=== PATIENT | female | born 1955 | race Caucasian/White ===

== ENCOUNTER 2020-03-19 13:11 | Inpatient (IN) | payer OTHER ==
[~2020-03-19] VITALS: Ht 152.4 cm; Wt 98.9 kg
--- NOTE | 2020-03-19 13:11 | NUR ---
PT [id number] URGENT CARE FOR CHEST PAIN THAT STARTED AT AROUND 0930. PT IS AAOX4, NOT IN RESPIRATORY DISTRESS, HOOKED TO BELLMAN DRIVER, KEPT RESTED AND COMFORTABLE. WILL CONTINUE TO MONITOR.
--- NOTE | 2020-03-19 13:36 | NUR ---
SEEN AND EXAMINED BY .
--- NOTE | 2020-03-19 13:40 | NUR ---
ER PHLEB AT BEDSIDE FOR BLOOD DRAW.
--- NOTE | 2020-03-19 13:44 | NUR ---
ENVIRONMENTAL FIELD PROFESSIONAL AT BEDSIDE FOR XRAY.
[2020-03-19 13:52] LABS: BASOPHILS % (AUTO) 0.5 % (0.0-2.0); HEMATOCRIT 36 % (33-45); HEMOGLOBIN 12.1 g/dL (11.5-14.8); LYMPHOCYTES # (AUTO) 1.8 /CMM (0.8-4.8); LYMPHOCYTES % (AUTO) 19.1 % (20.0-44.0); MEAN CORPUSCULAR HGB CONC 34 g/dl (31.0-36.0); MEAN CORPUSCULAR VOLUME 89 fL (82-100); MONOCYTES # (AUTO) 0.9 /CMM (0.1-1.30); MONOCYTES % (AUTO) 8.9 % (2.0-12.0); NEUTROPHILS # (AUTO) 6.7 /CMM (1.8-8.9); NEUTROPHILS % (AUTO) 70.5 % (43.0-81.0); PLATELET COUNT (AUTO) 242 /CMM (150-450); RED BLOOD CELL COUNT(AUTO) 4.03 MIL/uL (4.0-5.2); WHITE BLOOD COUNT (AUTO) 9.5 K/uL (4.3-11.0)
[2020-03-19 14:26] LABS: CALCIUM, SERUM 8.9 mg/dL (8.5-10.1); CARBON DIOXIDE 34 mmol/L (21-32); CHLORIDE 99 mmol/L (98-107); CREATININE 0.6 mg/dL (0.6-1.3); GLUCOSE 100 mg/dL (74-106); SODIUM SERUM 138 mmol/L (136-145); UREA NITROGEN, BLOOD 11 mg/dL (7-18)
[2020-03-19 14:32] LABS: ALANINE AMINOTRANSFERASE 23 U/L (12-78); ALBUMIN 3.3 g/dL (3.4-5.0); ALKALINE PHOSPHATASE 118 U/L (46-116); ASPARTATE AMINOTRANSFERASE 18 U/L (15-37); BILIRUBIN,DIRECT 0.4 mg/dL (0.0-0.2); BILIRUBIN,TOTAL 2.1 mg/dL (0.2-1.0); TOTAL PROTEIN, SERUM 7.3 g/dL (6.4-8.2)
[2020-03-19] MEDS ORDERED: SIMV-46 PO (14:44)
[2020-03-19] MEDS ORDERED: HYDR12.55 PO (14:44)
[2020-03-19] MEDS ORDERED: ONDANSETRON HCL/PF 4 MG/2 ML VIAL IVP PRN (17:30)
[2020-03-19] MEDS ORDERED: Z GUARD REMEDY 2 OZ OINT TP PRN (17:30)
[2020-03-19] MEDS ORDERED: MORPHINE SULFATE INJ 2 MG/ML DISP.SYRIN IV PRN (17:30)
[2020-03-19] MEDS ORDERED: MAGNESIUM HYDROXIDE 30 ML UDC PO PRN (17:30)
[2020-03-19] MEDS ORDERED: MAG HYDROX/AL HYDROX/SIMETH 30 ML UDC PO PRN (17:30)
[2020-03-19] MEDS ORDERED: TEMAZEPAM 15 MG CAPSULE PO PRN (17:30)
[2020-03-19] MEDS ORDERED: ACETAMINOPHEN 325 MG TABLET PO PRN (17:30)
[2020-03-19] MEDS ORDERED: HYDROCODONE/APAP 5/325MG TABLET PO PRN (17:30)
[2020-03-19] MEDS ORDERED: NITROGLYCERIN 0.4 MG/TAB BOTTLE SL PRN (17:30)
--- NOTE | 2020-03-19 17:44 | NUR ---
CHECKING ON COVID RESULT SINCE 1529 GIVE 15-30 MINS LAUREANO
[2020-03-19] MEDS ORDERED: HOME MED MISCELLANEOUS XX SCH (18:00)
--- NOTE | 2020-03-19 18:10 | NUR ---
LAB CALLED PT COVID RESULT (-) NEGATIVE.
[2020-03-19] MEDS ORDERED: MAG HYDROX/AL HYDROX/SIMETH 30 ML UDC PO ONE (19:30)
--- NOTE | 2020-03-19 21:41 | NUR ---
report given mark robbins for everardo
[2020-03-19] MEDS ORDERED: SIMVASTATIN 20 MG TABLET PO SCH (22:00)
[2020-03-19 22:10] VITALS: BP 137/75
--- NOTE | 2020-03-19 22:10 | NUR ---
FOIL CUTTER NOTES PATIENT ARRIVED ON FLOOR AT 2214. PT STEADY GAIT AND AMBULATED TO BED. PT IS ALERT AND ORIENTED X 4. BREATHING EVEN AND UNLABORED ON ROOM AIR. SHOWS NO SIGNS OF ACUTE RESPIRATORY DISTRESS, NO ACUTE PAIN. IV ON LAC 20G ITS CLEAN DRY AND INTACT. SHOWS NO SIGNS OF INFILTRATION, NO REDNESS. BELONGINGS CHECKLIST COMPLETED, SKIN IS INTACT. ORIENTED TO ROOM AND STAFF. SAFETY PRECAUTIONS IN PLACE. BED IN LOWEST POSITION, LOCKED, AND CALL LIGHT KEPT WITHIN REACH. WILL CONTINUE TO MONITOR.
--- NOTE | 2020-03-19 22:15 | NUR ---
DAY CAMP UNIT LEADER NOTES PATIENT HAS NO COMPLAINTS OF CHEST PAIN. SAID TO HAVE BEEN RELIEVED BY NITRO AND ASA. WILL CONTINUE TO MONITOR.
[2020-03-19 22:27] VITALS: BP 137/75
--- NOTE | 2020-03-20 06:41 | NUR ---
DECISION SUPPORT MANAGER NOTES PT IS BED, ASLEEP, ALERT AND ORIENTED X 4. BREATHING EVEN AND UNLABORED ON ROOM AIR. SHOWS NO SIGNS OF ACUTE RESPIRATORY DISTRESS, NO ACUTE PAIN. IV ON LAC 20G ITS CLEAN DRY AND INTACT. SHOWS NO SIGNS OF INFILTRATION, NO REDNESS. ALL DUE MEDICATIONS GIVEN. ALL NEEDS ATTENDED TO. SAFETY PRECAUTIONS IN PLACE. BED IN LOWEST POSITION, LOCKED, AND CALL LIGHT KEPT WITHIN REACH. WILL ENDORSE TO ONCOMING NURSE.
[2020-03-20 07:04] LABS: THYROID STIMULATING HORMONE 4.287 uIU/mL (0.358-3.74)
[2020-03-20 07:17] LABS: CREATININE 0.6 mg/dL (0.6-1.3); PHOSPHORUS 4.3 mg/dL (2.5-4.9); POTASSIUM 4.9 mmol/L (3.5-5.1)
[2020-03-20 07:31] LABS: BASOPHILS % (AUTO) 0.5 % (0.0-2.0); HEMATOCRIT 33 % (33-45); HEMOGLOBIN 11.4 g/dL (11.5-14.8); LYMPHOCYTES # (AUTO) 1.9 /CMM (0.8-4.8); MEAN CORPUSCULAR HGB CONC 34 g/dl (31.0-36.0); MEAN CORPUSCULAR VOLUME 90 fL (82-100); MONOCYTES # (AUTO) 0.8 /CMM (0.1-1.30); MONOCYTES % (AUTO) 11.1 % (2.0-12.0); NEUTROPHILS # (AUTO) 4.3 /CMM (1.8-8.9); NEUTROPHILS % (AUTO) 60.4 % (43.0-81.0); PLATELET COUNT (AUTO) 234 /CMM (150-450); RED BLOOD CELL COUNT(AUTO) 3.68 MIL/uL (4.0-5.2); WHITE BLOOD COUNT (AUTO) 7.2 K/uL (4.3-11.0)
[2020-03-20 07:53] LABS: CALCIUM, SERUM 8.9 mg/dL (8.5-10.1)
[2020-03-20 08:00] VITALS: BP 119/72
--- NOTE | 2020-03-20 08:09 | NUR ---
SUGAR MILL WORKER NOTE PATIENT IN BED RESTING COMFORTABLY. PATIENT IN NO ACUTE DISTRESS. NO SOB NOTED. PATIENT BREATHING IS EVEN AND UNLABORED. PATIENT ON CARDIAC MONITORING READING SINUS RHYTHM HR 86. PATIENT STATES NO PAIN AT THIS TIME. PATIENT BED ALARM IS ON. SAFETY PRECAUTIONS IN PLACE. PATIENT BED IS LOCKED AND IN LOWEST POSITION. CALL LIGHT WITHIN REACH. WILL CONTINUE TO MONITOR.
[2020-03-20] MEDS ORDERED: IOHEXOL-350 100 ML VIAL IV ONE (08:19)
[2020-03-20] MEDS ORDERED: IV NS 0.9% 250 ML IV ONE (08:19)
[2020-03-20] MEDS: METOPROLOL TARTRATE INJ 5 MG/5 ML AMPUL IVP PRN ×4 (08:38→08:53)
[2020-03-20] MEDS ORDERED: METOPROLOL TARTRATE INJ 5 MG/5 ML AMPUL ONE (08:41)
[2020-03-20] MEDS ORDERED: NITROGLYCERIN 0.4 MG/TAB BOTTLE ONE (08:41)
[2020-03-20] MEDS ORDERED: ASPIRIN 325 MG TABLET PO SCH (09:00)
[2020-03-20] MEDS ORDERED: HYDROCHLOROTHIAZIDE 25 MG TABLET PO SCH (09:00)
[2020-03-20] MEDS ORDERED: NITROGLYCERIN 0.4 MG/TAB BOTTLE SL ONE (09:00)
[2020-03-20] MEDS ORDERED: ENOXAPARIN SODIUM 40 MG/0.4 ML DISP.SYRIN SQ SCH (09:00)
--- NOTE | 2020-03-20 09:00 | NUR ---
Patient transported back to [facility] 309-1 via wheelchair in stable condition and denies any discomfort. Report given at BS to primary RN for SUAD.
[2020-03-20 11:51] VITALS: BP 122/71
[2020-03-20] MEDS ORDERED: METOPROLOL TARTRATE 50 MG TABLET PO SCH (12:00)
[2020-03-20] MEDS ORDERED: ZOLP10TA2 PO (13:55)
--- NOTE | 2020-03-20 14:21 | NUR ---
SURVEY CAD TECHNICIAN NOTE PATIENT MEDICALLY CLEARED FOR DISCHARGE. PATIENT IN NO ACUTE DISTRESS. NO SOB NOTED. PATIENT BREATHING IS EVEN AND UNLABORED. PATIENT DC INSTRUCTIONS PROVIDED. DELROY GOINS CAME TO SPEAK TO PATIENT INFORMING OF DC INSTRUCTIONS WELL. PATIENT VERBALIZED UNDERSTANDING. PATIENT REFUSED SKIN ASSESSMENT, EDUCATED RISKS VS BENEFITS. PATIENT CONTINUED TO REFUSE SKIN ASSESSMENT. PATIENT HAS BELONGINGS WITH HER, BELONGINGS LIST SIGNED. PATIENT KEPT CLEAN, DRY, AND COMFORTABLE THROUGHOUT SHIFT. IV REMOVED. ID BAND REMOVED. PATIENT NEEDS AND CONCERNS ADDRESSED. PATIENT AMBULATORY WITH STEADY GAIT. FAMILY TO NETWORK SERVICES PROJECT MANAGER PATIENT GOING BACK HOME. MD AWARE OF DISCHARGE.
--- NOTE | 2020-03-20 15:03 | NUR ---
Patient is alert and oriented,lives locally with family. He is ambulatory and independent with adl's. Denies any dc needs. Advised to f/u with pcp at [facility] . Addendum: 03/20/20 at 2107 by MAYNOR ATKINSON RN Amended: Links added.
== END 2020-03-20 14:00 | disposition home or self-care (01) | DRG 203 ==
LOC: ER 13:14 → TELE 22:02 → MED 03-20 12:50
PROVIDERS: ADMIT Nurse Practitioner Acute Care; ATTEND Nurse Practitioner Acute Care
DX: M94.0 Chondrocostal junction syndrome [Tietze] (principal); E66.01 Morbid (severe) obesity due to excess calories; E78.5 Hyperlipidemia, unspecified; I10 Essential (primary) hypertension; Z68.41 Body mass index [BMI] 40.0-44.9, adult; E44.1 Mild protein-calorie malnutrition; E80.6 Other disorders of bilirubin metabolism; Z20.828 Contact with and (suspected) exposure to other viral communicable diseases; Z71.3 Dietary counseling and surveillance; G47.33 Obstructive sleep apnea (adult) (pediatric); K83.8 Other specified diseases of biliary tract; Z90.710 Acquired absence of both cervix and uterus
CPT/HCPCS: 36415; 71045-TC; 75574; 76700-TC; 80048-TC; 80061-TC; 80076-TC; 83690-TC; 83735-TC; 84100-TC; 84443-TC; 84480; 84484-TC; 85025-TC; 87081-TC; 93307-TC; C9803; G0378; J1650; J3490; J7050; Q9967